=== PATIENT | female | born 1965 | race Caucasian/White ===

== ENCOUNTER 2017-12-23 20:32 | Emergency (ER) | payer MEDICAID ==
[2017-12-23 20:37] VITALS: BP 101/65; PULSE 81; RESP 16; TEMP 98.2; O2SAT 97
== END 2017-12-23 21:30 | disposition left against medical advice (07) ==
DX: Z53.21 Procedure and treatment not carried out due to patient leaving prior to being seen by health care provider (principal)

== ENCOUNTER 2017-12-29 18:31 | Emergency (ER) | payer MEDICAID ==
[2017-12-29 18:42] VITALS: BP 110/81; PULSE 87; RESP 16; TEMP 98.1; O2SAT 96
--- NOTE | 2017-12-29 18:43 | EDPHY ---
H & P Time Seen by Provider: 12/29/17 18:34 HPI/ROS: CHIEF COMPLAINT: Continued dysuria and urinary frequency and suprapubic pain HISTORY OF PRESENT ILLNESS: Patient is had a history of multiple UTIs. She started having symptoms on December 05 and she was treated at urgent care with an antibiotic that"started with an M" she can't remember the exact name. She has continued to have symptoms every day for almost the last month. She presents today with continued symptoms. She saw her marketing and promotions manager [facility], nurse practitioner Bernice at Dr. Hunt, and had pelvic exam and urine culture sent and was started on Bactrim. She presents to me today because she still has symptoms and wants a diagnosis. Denies fever or vaginal discharge or bleeding. No hematuria or flank pain. REVIEW OF SYSTEMS: Eye: no change in vision ENT: no sore throat Cardiac: no chest pain or syncope Pulmonary: no cough or SOB Abdomen: No vomiting or diarrhea, symptoms unchanged with eating Musculoskeletal: no back pain Skin: no rash Neuro: no headache Constitutional: no fever : HPI A comprehensive 10 point review of systems is otherwise negative aside from elements mentioned in the history of present illness. PAST MEDICAL HISTORY: Cervicitis, UTIs, D&C Social history: Nonsmoker General Appearance: Alert and conversant, cooperative. Eyes: No scleral icterus. ENT, Mouth: Normal mucous membranes. Respiratory: Normal respiratory effort, breath sounds equal, lungs are clear to auscultation. Cardiovascular: Regular rate and rhythm. Gastrointestinal: No abdominal or suprapubic tenderness. No rebound or guarding. Bowel sounds present. Neurological: Alert, face symmetric, normal motor and sensory in extremities. Skin: Warm and dry, no rashes. Musculoskeletal: No CVA tenderness. Psychiatric: Not agitated. Emergency Department course/MDM: Repeat urine micro sent, ultrasound discussed and consented. Urine negative. Will not repeat pelvic exam since she had 1 last . Labs done after her clinic visit include a negative urine culture and normal white blood cell count. Ultrasound performed, shows fibroids. Will ask her to continue Bactrim since UA negative, she is not having severe side effects. Culture is negative to date but I think decision to continue or stop should be made by her prescribing cavity pump operator. She can call them tomorrow. At this time I think it is unlikely she has PID or pyelonephritis or acute surgical abdominal process. She has tried azo before but did not like the way it made her feel. Think she is stable to be discharged and have office follow-up tomorrow. 2007: 2x fibroids, [place]. Results discussed with the patient, she states she is comfortable being discharged with this information following up with her cavity pump operator tomorrow. Smoking Status: Never smoked Constitutional: Initial Vital Signs Temperature (C) 36.7 C 12/29/17 18:37 Heart Rate 87 12/29/17 18:37 Respiratory Rate 16 12/29/17 18:37 Blood Pressure 110/81 H 12/29/17 18:37 O2 Sat (%) 96 12/29/17 18:37 O2 Delivery Mode Room Air Allergies/Adverse Reactions: amoxicillin Allergy (Verified 12/29/17 18:37) azithromycin [From Zithromax] Allergy (Verified 12/29/17 18:37) doxycycline Allergy (Verified 12/29/17 18:37) metronidazole [From Flagyl] Allergy (Verified 12/29/17 18:37) promethrin Allergy (Uncoded 12/23/17 20:37) Home Medications: Medication Instructions Recorded Bactrim DS 12/29/17 MDM/Departure - Depart Disposition: Home, Routine, Self-Care Clinical Impression: Cystitis Fibroids Qualifiers: Uterine leiomyoma location: unspecified location Qualified Code(s): D25.9 - Leiomyoma of uterus, unspecified Condition: Good Instructions: Dysuria (ED) Additional Instructions: UA normal (does not have evidence of infection tonight), continue Bactrim as prescribed until you talk to your [facility] MANAGER office tomorrow. Referrals: LILY ACUÑA [Retired Resigned] - 1 day without fail
== END 2017-12-29 20:49 | disposition home or self-care (01) ==
DX: N30.90 Cystitis, unspecified without hematuria (principal); B96.89 Other specified bacterial agents as the cause of diseases classified elsewhere; D25.9 Leiomyoma of uterus, unspecified

== ENCOUNTER 2019-02-14 09:47 | Emergency (ER) | payer MEDICAID ==
--- NOTE | 2019-02-14 10:29 | EDPHY ---
H & P Stated Complaint: UTI sx Time Seen by Provider: 02/14/19 09:55 HPI/ROS: CHIEF COMPLAINT: Hematuria HISTORY OF PRESENT ILLNESS: 53-year-old female presents with hematuria. Onset of dysuria and urinary frequency yesterday. Associated with gross hematuria today. Symptoms moderate. No alleviating factors and no associated symptoms. No fever, vomiting or flank pain. REVIEW OF SYSTEMS: complete 10 point ROS reviewed and is negative except for the noted elements in the HPI - Personal History LMP (Females 10-55): Post Menopausal Current Tetanus/Diphtheria Vaccine: No Current Tetanus Diphtheria and Acellular Pertussis (TDAP): No Tetanus Vaccine Date: <10 years - Medical/Surgical History Hx Asthma: No Hx Chronic Respiratory Disease: No Hx Diabetes: No Hx Cardiac Disease: No Hx Renal Disease: No Hx Cirrhosis: No Hx Alcoholism: No Hx HIV/AIDS: No Hx Splenectomy or Spleen Trauma: No Other PMH: cervicitis, hx UTIs, wisdom teeth removal, D&C - Social History Smoking Status: Never smoked - Physical Exam Exam: General Appearance: Alert, pleasant, nontoxic Eyes: Pupils equal and round ENT, Mouth: Mucous membranes moist Neck: Normal inspection Respiratory: Normal respiratory rate Cardiovascular: Regular rate and rhythm Gastrointestinal: Abdomen is soft and nontender Neurological: A&O, nonfocal exam Skin: Warm and dry Extremities: Normal inspection Psychiatric: Mood and affect normal Constitutional: Initial Vital Signs Temperature (C) 36.7 C 02/14/19 09:51 Heart Rate 74 02/14/19 09:51 Respiratory Rate 16 02/14/19 09:51 Blood Pressure 121/70 H 02/14/19 09:51 O2 Sat (%) 98 02/14/19 09:51 O2 Delivery Mode Room Air Allergies/Adverse Reactions: amoxicillin Allergy (Verified 12/29/17 18:37) azithromycin [From Zithromax] Allergy (Verified 12/29/17 18:37) doxycycline Allergy (Verified 12/29/17 18:37) metronidazole [From Flagyl] Allergy (Verified 12/29/17 18:37) promethrin Allergy (Uncoded 12/23/17 20:37) Home Medications: Medication Instructions Recorded Bactrim DS 12/29/17 Cephalexin [Keflex (*)] 500 mg PO BID #10 cap 02/14/19 Medical Decision Making ED Course/Re-evaluation: Patient presents with urinary symptoms. Urinalysis is consistent with urinary tract infection. A urine culture was sent. Keflex prescribed. - Data Points Laboratory Results: 02/14/19 09:55 Urine Color YELLOW Urine Appearance MODERATELY TURBID Urine pH 7.0 (5.0-7.5) Ur Specific [place] 1.003 (1.002-1.030) Urine Protein NEGATIVE (NEGATIVE) Urine Ketones NEGATIVE (NEGATIVE) Urine Blood 3+ H (NEGATIVE) Urine Nitrate NEGATIVE (NEGATIVE) Urine Bilirubin NEGATIVE (NEGATIVE) Urine Urobilinogen NEGATIVE EU EU (0.2-1.0) Ur Leukocyte Esterase 3+ H (NEGATIVE) Urine RBC 3-5 /hpf H /hpf (0-3) Urine WBC 50-182 /hpf H /hpf (0-3) Ur Epithelial Cells NONE SEEN /lpf /lpf (NONE-1+) Urine Bacteria TRACE /hpf H /hpf (NONE SEEN) Urine Glucose NEGATIVE (NEGATIVE) Medications Given: Discontinued Medications Cephalexin HCl (Keflex) 500 mg PO EDNOW ONE PRN Reason: Protocol Stop: 02/14/19 11:10 Last Admin: 02/14/19 11:20 Dose: 500 mg Departure - Departure Disposition: Home, Routine, Self-Care Clinical Impression: Urinary tract infection Qualifiers: Urinary tract infection type: acute cystitis Hematuria presence: with hematuria Qualified Code(s): N30.01 - Acute cystitis with hematuria Condition: Good Instructions: Urinary Tract Infection in Women (ED) Referrals: Annel Hebert MD [Medical Doctor] - As per Instructions Prescriptions: Cephalexin [Keflex (*)] 500 mg PO BID #10 cap
[2019-02-14] MEDS ORDERED: CEPHALEXIN 500 MG CAP PO ONE (11:09)
[2019-02-14 11:26] VITALS: BP 121/78
== END 2019-02-14 11:26 | disposition home or self-care (01) ==
DX: N30.01 Acute cystitis with hematuria (principal)